=== PATIENT | male | born 1970 | race Caucasian/White ===

== ENCOUNTER 2023-03-24 13:50 | Emergency (ER) | payer OTHER, SELFPAY ==
[2023-03-24 13:53] VITALS: BP 179/115; PULSE 92; RESP 16; TEMP 36.6; O2SAT 96; BMI 32.1
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
== END 2023-03-24 15:00 | disposition home or self-care (01) ==
PROVIDERS: Emergency Provider Family Medicine; PCP Family Medicine
DX: S05.91XA Unspecified injury of right eye and orbit, initial encounter (principal); Y04.2XXA Assault by strike against or bumped into by another person, initial encounter
CPT/HCPCS: 99282; 99283